=== PATIENT | female | born 1935 | race Caucasian/White ===

== ENCOUNTER 2017-07-03 22:40 | Observation (INO) ==
[2017-07-03] MEDS ORDERED: Ondansetron 4 MG/2 ML VIAL IVP ONE (22:47)
[2017-07-03] MEDS ORDERED: Nitroglycerin 1 INCH/GM PACKET TP ONE (22:47)
[2017-07-03] MEDS ORDERED: Aspirin 81 MG TAB.CHEW PO ONE (22:47)
[2017-07-03] MEDS ORDERED: *HR* LORazepam 2 MG/ML VIAL IVP ONE ×2 (22:48→23:21)
--- NOTE | 2017-07-03 22:49 | Emergency Department Note ---
Disposition Clinical Impression: Atypical chest pain Anemia Qualifiers: Anemia type: unspecified type Qualified Code(s): D64.9 - Anemia, unspecified Disposition: Admitted As Inpatient Condition: Fair Referrals: NONE,PCP [Primary Care Provider] - Forms: ED Satisfaction Letter Chest Pain HPI - General Chief Complaint: ED Chest Pain Stated Complaint: CHEST PAIN/BURNING Time Seen by Provider: 07/03/17 22:42 Source: patient, EMS Mode of arrival: EMS Limitations: no limitations Vital Signs Reviewed: Yes Nursing Notes Reviewed: Yes - History of Present Illness HPI Narrative: The patient relates that she has been having a burning epigastric and anterior chest pain "all day". Started this morning and seemed initially that it got a bit better when she is walking. She is also noted a dull persistent pain or chest and a feeling of an occasional irregular heartbeat. She has had some shortness of breath nausea without any diaphoresis. Chest pain in lower extremity swelling, immobilization injury or pain. She states she has some chronic pain in her legs from "poor circulation". She indicates that she has had a history of heart disease with a left anterior descending cardiac stent placed in about 2008 in [facility]. She states she currently follows up with Dr. Nav Mckinney through [facility] She indicates she has had had pain like this before and she has a evaluation here. She does not know the results of this evaluation states the pain just "went away". The patient is brought in by EMS without incident. I did transmit an EKG performed at 10:30 PM. This showed a heart rate of 95, axis of 23, [place] interval of 96 and the QT/QTC 346/407. There is some artifact present but no other acute ST or T-wave changes to suggest ischemia or infarction. This is on my interpretation. Pt complaint: chest pain Onset (ago): hour(s) (15) Duration: intermittent Pain Location: substernal, epigastric Severity: moderate Quality: dull, other (Burning) Pain Radiation: LUE Improves with: nothing Worsens with: nothing Associated symptoms: Reports: nausea, dyspnea. Denies: vomiting, diaphoresis, syncope, palpitations, fever, cough, leg swelling - Related Data Home Medications Medication Instructions Recorded Confirmed Atenolol [Tenormin] 12.5 mg PO DAILY PRN 10/24/15 07/03/17 Epoetin Cash [Procrit] 40,000 units IM QWEEK 10/24/15 07/03/17 Levothyroxine [Synthroid] 75 mcg PO DAILY 10/24/15 07/03/17 Aspirin 81 mg PO DAILY 05/15/16 07/03/17 Esomeprazole Magnesium [Nexium] 40 mg PO DAILY 12/23/16 07/03/17 Allergies Allergy/AdvReac Type Severity Reaction Status Date / Time cephalexin [From Keflex] AdvReac Nausea Verified 07/03/17 22:53 chlorpheniramine AdvReac Hypertensio Verified 07/03/17 22:53 [From Chlor-Trimeton] n nitrofurantoin AdvReac Hives Verified 07/03/17 22:53 [From Macrobid] All systems ED: reviewed and negative except as stated. Chest Pain PMH - Past Medical History Medical history: Reports: cancer ("Bone marrow cancer"), coronary artery disease , GERD, hypertension, thyroid disease, other (Recurrent Anemia with history of multiple transfusions) Surgical history: Reports: angioplasty/stent, cholecystectomy, hysterectomy, other (Bladder surgery) Psychiatric history: Reports: no psych history INDIAN NANNY history: Reports: no INDIAN NANNY history - Social History Smoking Status: Never smoker Alcohol use: Reports: none Drug use: Reports: none Physical Exam - General Limitations: no limitations General appearance: alert, anxious - Head Head exam: atraumatic, normocephalic, normal inspection - Eye Eye exam: Present: normal appearance, PERRL, EOMI - ENT ENT exam: normal exam, normal oropharynx, mucous membranes moist - Neck Neck exam: Present: normal inspection, full ROM, trachea midline - Chest Chest inspection: Present: normal inspection, symmetric chest wall rise, tenderness - Respiratory Respiratory exam: Present: normal lung sounds bilaterally. Absent: respiratory distress, wheezes, prolonged expiratory phase - Cardiovascular Cardiovascular exam: Present: regular rate, normal rhythm, normal heart sounds. Absent: tachycardia - Abdominal Exam Abdominal exam: Present: soft, Non-Tender, normal bowel sounds. Absent: tenderness, distention, guarding, rebound, rigidity - Extremities Exam Extremities exam: Present: normal inspection, full ROM, tenderness (Diffuse tenderness that is reported to be normal.), normal capillary refill. Absent: pedal edema - Expanded Lower Extremity Exam Neurovascular/Tendon exam: Present: normal capillary refill. Absent: motor deficit, sensory deficit, tendon deficit Gait: observed and normal - Back Exam Back exam: Present: normal inspection, full ROM. Absent: tenderness - Neurological Exam Neurological exam: Present: alert, oriented X3 - Psychiatric Psychiatric exam: Present: agitated, anxious - Skin Skin exam: Present: warm, dry, intact, normal color. Absent: cyanosis, diaphoresis, pallor Course Course Narrative: All testing has been discussed with the patient and her sister. I also contacted Dr. Reyes has given verbal orders for observation this patient on chest pain protocol with serial troponins. We are awaiting a bed placement at this time to transfer her to the inpatient floor. Vital Signs Temperature 98.4 F 07/03/17 22:43 Pulse Rate 85 07/03/17 22:43 Respiratory Rate 20 07/03/17 22:43 Blood Pressure 155/75 07/03/17 22:43 O2 Sat by Pulse Oximetry 100 07/03/17 22:43 Temperature 98.8 F 07/03/17 23:36 Pulse Rate 76 07/03/17 23:36 Respiratory Rate 20 07/03/17 23:36 Blood Pressure 112/79 07/03/17 23:36 O2 Sat by Pulse Oximetry 99 07/03/17 23:36 Oxygen Delivery Oxygen Delivery Room Air Chest Pain - Differential Diagnosis Likely: atypical chest pain, costalchondritis, chest pain - Medical Records Medical records reviewed: Yes I reviewed the patient's medical records. - Lab Data Lab results reviewed: Yes I reviewed the patient's lab results. Result diagrams: 07/03/17 22:57 07/03/17 22:57 Lab Results 07/03/17 07/03/17 07/03/17 Range/Units 22:57 22:57 22:57 WBC 2.2 L (4.3-11.1) K/mcL RBC 2.69 L (3.82-4.97) M/mcL Hgb 8.5 L (11.5-15.4) g/dL Hct 23.7 L (35.3-44.9) % MCV 88.1 (83.0-100.0) fL MCH 31.6 (28.0-33.3) pg MCHC 35.9 H (31.6-35.5) g/dL RDW 14.5 (11.5-14.5) % Plt Count 133 L (140-400) K/mcL MPV 11.1 (9.4-12.4) fL Immature Gran % 12.4 H (0-4) % Seg Neutrophils % 46.2 % Lymphocytes % 32.6 % Monocytes % 6.0 % Eosinophils % 0.5 % Basophils % 2.3 % Neutrophils # 1.0 L (1.6-8.9) K/mcL Lymphocytes # 0.7 (0.6-4.6) K/mcL Monocytes # 0.1 (0.0-1.3) K/mcL Eosinophils # 0.0 (0.0-0.6) K/mcL Basophils # 0.1 (0.0-0.2) K/mcL Platelet Estimate Normal (Normal) Anisocytosis 1+ A (Not Present) PT 12.0 (9.4-12.1) Seconds INR 1.1 APTT 30.8 (26.0-36.0) Seconds Sodium (136-145) mEq/L Potassium (3.5-4.5) mEq/L Chloride (98-109) mEq/L Carbon Dioxide (19-29) mEq/L BUN (7-20) mg/dL Creatinine (0.57-1.11) mg/dL Est GFR ( Amer) (> 60) Est GFR (Non-Af Amer) (> 60) BUN/Creatinine Ratio (6-26) Glucose (70-99) mg/dL Calculated Osmolality (280-300) Calcium (8.6-10.8) mg/dL Total Bilirubin 1.4 H (0.2-1.2) mg/dL Direct Bilirubin 0.5 (0.0-0.5) mg/dL Indirect Bilirubin 0.9 (0.0-1.2) mg/dL AST 21 (5-34) Units/L ALT 18 (0-55) Units/L Alkaline Phosphatase 88 (38-126) Units/L Troponin I (0-0.03) ng/mL Serum Total Protein 6.5 (6.0-8.3) g/dL Albumin 3.8 (3.5-5.0) g/dL Globulin 2.7 (2.4-3.5) g/dL Albumin/Globulin Ratio 1.4 (1.1-2.2) Amylase 57 (25-125) Units/L Lipase 28 (8-78) Units/L 07/03/17 07/03/17 Range/Units 22:57 22:57 WBC (4.3-11.1) K/mcL RBC (3.82-4.97) M/mcL Hgb (11.5-15.4) g/dL Hct (35.3-44.9) % MCV (83.0-100.0) fL MCH (28.0-33.3) pg MCHC (31.6-35.5) g/dL RDW (11.5-14.5) % Plt Count (140-400) K/mcL MPV (9.4-12.4) fL Immature Gran % (0-4) % Seg Neutrophils % % Lymphocytes % % Monocytes % % Eosinophils % % Basophils % % Neutrophils # (1.6-8.9) K/mcL Lymphocytes # (0.6-4.6) K/mcL Monocytes # (0.0-1.3) K/mcL Eosinophils # (0.0-0.6) K/mcL Basophils # (0.0-0.2) K/mcL Platelet Estimate (Normal) Anisocytosis (Not Present) PT (9.4-12.1) Seconds INR APTT (26.0-36.0) Seconds Sodium 132 L (136-145) mEq/L Potassium 3.8 (3.5-4.5) mEq/L Chloride 96 L (98-109) mEq/L Carbon Dioxide 21 (19-29) mEq/L BUN 22 H (7-20) mg/dL Creatinine 1.03 (0.57-1.11) mg/dL Est GFR ( Amer) > 60 (> 60) Est GFR (Non-Af Amer) 51 L (> 60) BUN/Creatinine Ratio 21 (6-26) Glucose 118 H (70-99) mg/dL Calculated Osmolality 278 L (280-300) Calcium 9.6 (8.6-10.8) mg/dL Total Bilirubin (0.2-1.2) mg/dL Direct Bilirubin (0.0-0.5) mg/dL Indirect Bilirubin (0.0-1.2) mg/dL AST (5-34) Units/L ALT (0-55) Units/L Alkaline Phosphatase (38-126) Units/L Troponin I 0.01 (0-0.03) ng/mL Serum Total Protein (6.0-8.3) g/dL Albumin (3.5-5.0) g/dL Globulin (2.4-3.5) g/dL Albumin/Globulin Ratio (1.1-2.2) Amylase (25-125) Units/L Lipase (8-78) Units/L - Radiology Data Radiology results reviewed: Yes I reviewed the patient's radiology results. Single view chest x-ray is performed. This does not demonstrate evidence for infiltrate, effusion, pneumothorax, foreign body or heart failure. The cardiac silhouette is normal. I do not see abnormality to the osseous structures of the chest. This is on my interpretation. Impressions Chest X-Ray 07/03/17 22:47 IMPRESSION: Stable portable study. D/ / Mirlande Roth Cha, MD / Mirlande Roth Cha, MD Interpreting Provider: Mirlande Roth Cha, MD - EKG Data EKG attestation: Yes I reviewed and interpreted this EKG. EKG shows normal: sinus rhythm, axis, intervals, QRS complexes, ST-T waves Rate: normal (93) Voltage: c/w LVH Interpretation: no acute changes, nonspecific ST-T wave changes Heart Score - Score History: Slightly Suspicious EKG: Non Specific repolarisation Disturbance Age: Greater than 65 Risk Factors: Equal/Greater than 3 risk factor or history of atherosclerotic disease Troponin: Less than normal limit HEART Score Total: 5
[2017-07-03 23:04] LABS: Basophils # 0.1 K/mcL (0.0-0.2); Basophils % 2.3 %; Eosinophils % 0.5 %; Hematocrit 23.7 % (35.3-44.9); Hemoglobin 8.5 g/dL (11.5-15.4); Immature Granulocytes % 12.4 % (0-4); Lymphocytes # 0.7 K/mcL (0.6-4.6); Lymphocytes % 32.6 %; Mean Corpuscular HGB Conc 35.9 g/dL (31.6-35.5); Mean Corpuscular Hemoglobin 31.6 pg (28.0-33.3); Mean Corpuscular Volume 88.1 fL (83.0-100.0); Mean Platelet Volume 11.1 fL (9.4-12.4); Monocytes # 0.1 K/mcL (0.0-1.3); Platelet Count 133 K/mcL (140-400); Red Blood Count 2.69 M/mcL (3.82-4.97); Red Cell Distribution Width 14.5 % (11.5-14.5); Segmented Neutrophils % 46.2 %
[2017-07-03 23:10] LABS: INR 1.1
[2017-07-03 23:12] LABS: Activated Partial Thrombo Time 30.8 Seconds (26.0-36.0)
[2017-07-03 23:20] LABS: BUN/Creatinine Ratio 21 (6-26); Blood Urea Nitrogen 22 mg/dL (7-20); Calcium 9.6 mg/dL (8.6-10.8); Carbon Dioxide 21 mEq/L (19-29); Chloride 96 mEq/L (98-109); Glucose 118 mg/dL (70-99); Osmolality,Calculated 278 (280-300); Potassium 3.8 mEq/L (3.5-4.5); Sodium 132 mEq/L (136-145); eGFR For African Americans > 60 (> 60); eGFR For Non-African Americans 51 (> 60)
[2017-07-03 23:23] LABS: Albumin 3.8 g/dL (3.5-5.0); Albumin/Globulin Ratio 1.4 (1.1-2.2); Bilirubin,Direct 0.5 mg/dL (0.0-0.5); Bilirubin,Indirect 0.9 mg/dL (0.0-1.2); Bilirubin,Total 1.4 mg/dL (0.2-1.2); Globulin 2.7 g/dL (2.4-3.5); Total Protein 6.5 g/dL (6.0-8.3)
[2017-07-03 23:32] LABS: Anisocytosis 1+ (Not Present); Platelet Estimate Normal (Normal)
[2017-07-04] MEDS ORDERED: Naloxone 0.4 MG/ML INJ IVP PRN (00:11)
[2017-07-04] MEDS ORDERED: Ondansetron 4 MG/2 ML VIAL IVP PRN (00:11)
[2017-07-04] MEDS ORDERED: Acetaminophen 325 MG TABLET PO PRN (00:11)
[2017-07-04] MEDS ORDERED: MOM Conc 10 ML UD.LIQ PO PRN (00:11)
[2017-07-04] MEDS ORDERED: Nitroglycerin 1 INCH/GM PACKET TP SCH (06:00)
[2017-07-04] MEDS ORDERED: Aspirin 81 MG TAB.CHEW PO SCH (09:00)
[2017-07-04 11:30] VITALS: BP 108/61
--- NOTE | 2017-07-04 12:29 | Internal Med History&Physical ---
Date of Encounter: 07/04/17 Time of Encounter: 11:45 Assessment and Plan (1) Atypical chest pain Current visit: Yes Status: Acute Repeat cardiac enzymes were ordered through emergency room. Further workup done as needed. (2) MDS (myelodysplastic syndrome) Current visit: Yes Status: Chronic As per oncologist (3) CKD (chronic kidney disease) Current visit: Yes Status: Acute Renal indices are being monitored by her PCP and oncologist. Qualifiers: Chronic kidney disease stage: stage 3 (moderate) Qualified Code(s): N18.3 - Chronic kidney disease, stage 3 (moderate) Internal Medicine - H&P: HPI Chief complaint: Chest discomfort Admitted From: Home Plans for Post Hospital Care: Home History of present illness: Ms. Raza is a 82 year old female who came to emergency room dating she had noticed chest discomfort present when she awakened approximately 0600. Her blood pressure was elevated with systolic of approximately 190. She took a dose of Tenormin 12.5 mg. She felt some nonspecific discomfort in her chest and felt her heart was "skipping". She also felt slightly confused. When she did not improve over the next few hours she decided to come to the emergency room. She was evaluated and admitted to [facility] for ongoing care needs. She states she feels back to her baseline now. Her cardiovascular history is significant for hypertension but she denies FL heart failure angina DVT or pulmonary embolus. She claims she had a cardiac stent placed approximately 2008. She does get dyspneic on exertion but has anemia from MDS. Past Med Surg Social Fam HX - Past Medical History Medical history: cancer, coronary artery disease, GERD, hypertension, thyroid disease, other Psychiatric history: no psych history - Past Surgical History Surgical History: angioplasty/stent, cholecystectomy, hysterectomy, other - Social History Smoking Status: Never smoker Smokeless Tobacco Status: No Alcohol use: none Drug use: none Internal Medicine - H&P: Meds Atenolol [Tenormin] 12.5 mg PO DAILY PRN 10/24/15 [History] Epoetin Cash [Procrit] 40,000 units IM QWEEK 10/24/15 [History] Levothyroxine [Synthroid] 75 mcg PO DAILY 10/24/15 [History] Aspirin 81 mg PO DAILY 05/15/16 [History] Esomeprazole Magnesium [Nexium] 40 mg PO DAILY 12/23/16 [History] Allergies cephalexin [From Keflex] Adverse Reaction (Verified 07/03/17 22:53) Nausea chlorpheniramine [From Chlor-Trimeton] Adverse Reaction (Verified 07/03/17 22:53 ) Hypertension nitrofurantoin [From Macrobid] Adverse Reaction (Verified 07/03/17 22:53) Hives All Systems PM: A 10-system review of systems was performed and is negative for pertinent findings except as documented above in the HPI. Review of systems: Gen.: Her weight has changed minimally from 64.818 kg on 05/15/2016 to 61.235 kg on admission now. Cardiovascular: As per history of present illness Respiratory: She is a lifelong nonsmoker and has no known chronic lung disease. GI: She has had cholecystectomy. She has had elevated liver function tests in the past. She denies disorder of her exocrine pancreas. : She is been told in the past she has CKD Neurologic: She denies large distribution strokes or seizures. She was diagnosed with TIA approximately 6 weeks ago at [facility]. She states she was not regularly taking aspirin prior to the event but has been using enteric-coated aspirin 81 mg daily since then and has had no recurrence. 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 She denies other internal malignancies or blood disorders. Psychiatric: She has feelings of stress and depression at times but does not take medication Musk skeletal: She has DJD no known gout or osteoporosis. - Constitutional Vitals: Temp Pulse Resp BP Pulse Ox 98.5 F 75 16 108/61 97 07/04/17 11:00 07/04/17 11:00 07/04/17 11:00 07/04/17 11:07/04/17 11:00 Exam: Gen.: She is a well-developed well-nourished female lying in bed who appears in no acute distress at present time HEENT: Head is atraumatic and normocephalic. Eyes: EOMI. There is no scleral icterus. Mouth: Mucosa is moist. Neck: Supple and nontender. There is no thyromegaly or adenopathy noted. Heart: Regular without murmurs gallops or ectopics Lungs: No wheezes or crackles are heard. Abdomen: Soft and nontender. No masses or guarding noted. Extremities: There is no cyanosis edema or clubbing noted. Dorsalis pedis and posterior tibial pulses are 1-2 over 2 bilaterally. Neurologic: Mental status: She is talkative and a good historian. Cranial nerves: Smile is symmetric. Forehead wrinkles bilaterally. Tongue protrudes midline. EOMI. Motor: There is no pronator drift. Cerebellar: Finger to nose is intact bilaterally. Skin: Warm and dry Internal Med - H&P Results - Labs CBC & Chem 7: 07/03/17 22:57 07/03/17 22:57 Labs: Cardiac Enzymes 07/04/17 07/04/17 Range/Units 05:05 11:08 Troponin I 0.00 0.02 (0-0.03) ng/mL - VTE Documentation of Mechanical Device: Graduated compression elastic hosiery
--- NOTE | 2017-07-04 12:38 | Discharge Summary ---
Date of Encounter: 07/04/17 Time of Encounter: 11:45 - Discharge Diagnosis (1) Atypical chest pain Priority: Primary Status: Resolved (2) MDS (myelodysplastic syndrome) Priority: Secondary Status: Chronic (3) CKD (chronic kidney disease) Priority: Secondary Status: Chronic Qualifiers: Chronic kidney disease stage: stage 3 (moderate) Qualified Code(s): N18.3 - Chronic kidney disease, stage 3 (moderate) - Discharge Medications Home Medications: Atenolol [Tenormin] 12.5 mg PO DAILY PRN 10/24/15 [History] Epoetin Cash [Procrit] 40,000 units IM QWEEK 10/24/15 [History] Levothyroxine [Synthroid] 75 mcg PO DAILY 10/24/15 [History] Aspirin 81 mg PO DAILY 05/15/16 [History] Esomeprazole Magnesium [Nexium] 40 mg PO DAILY 12/23/16 [History] Allergies/Adverse Reactions: Allergies cephalexin [From Keflex] Adverse Reaction (Verified 07/03/17 22:53) Nausea chlorpheniramine [From Chlor-Trimeton] Adverse Reaction (Verified 07/03/17 22:53 ) Hypertension nitrofurantoin [From Macrobid] Adverse Reaction (Verified 07/03/17 22:53) Hives Date of admission: 07/04/17 00:00 Primary care physician: Nav Mckinney M.D. - Patient Status Disposition: Home, Self-Care Condition: Fair Functional capacity at discharge: independent ambulation Overall status at discharge: patient is progressing back to baseline - Discharge Instructions Follow Up With: Nav Mckinney [Non-Partnered Physician] - 1 week - Diet and Activity Activity: resume usual activities as tolerated Diet: advance to your usual diet Hospital course: Ms. Raza is a 82 year old female who came to emergency room dating she had noticed chest discomfort present when she awakened approximately 0600. Her blood pressure was elevated with systolic of approximately 190. She took a dose of Tenormin 12.5 mg. She felt some nonspecific discomfort in her chest and felt her heart was "skipping". She also felt slightly confused. When she did not improve over the next few hours she decided to come to the emergency room. She was evaluated and admitted to [facility] for ongoing care needs. Initial orders were written by the emergency room physician. I saw her on July 04 and performed a history physical and discharge. Repeat cardiac enzymes showed no evidence of myocardial damage. When I saw her she was pain free and had no recurrence of discomfort after admission. She felt stable for discharge home which I felt was reasonable. She will follow with her PCP within one week. - Time Spent with Patient Total time spent providing and/or coordinating discharge services: - Constitutional Vitals: Temp Pulse Resp BP Pulse Ox 98.5 F 75 16 108/61 97 07/04/17 11:07/04/17 11:07/04/17 11:00 07/04/17 11:07/04/17 11:00 - VTE Documentation of Mechanical Device: Graduated compression elastic hosiery
--- NOTE | 2017-07-04 15:19 | Electrocardiograph Report ---
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
== END 2017-07-04 13:37 | disposition home or self-care (01) ==
LOC: INPPIK 22:40 → EMEROOPIK 22:40 → INPPIK 07-04 00:07
PROVIDERS: ADMIT Internal Medicine; ATTEND Internal Medicine

== ENCOUNTER 2018-07-18 23:10 | Observation (INO) ==
[2018-07-18] MEDS ORDERED: Nitroglycerin 1 INCH/GM PACKET TP ONE (23:20)
--- NOTE | 2018-07-18 23:36 | Emergency Department Note ---
Disposition Clinical Impression: Atypical chest pain, Hyponatremia, History of hypertension, Near syncope, Chronic anemia Disposition: Admitted As Inpatient Condition: Good Forms: ED Satisfaction Letter Time of Disposition: 00:23 Chest Pain HPI - General Chief Complaint: ED Chest Pain Stated Complaint: mid sturnal chest pain Time Seen by Provider: 07/18/18 23:19 Source: patient, EMS Mode of arrival: EMS Limitations: no limitations Vital Signs Reviewed: Yes Nursing Notes Reviewed: Yes - History of Present Illness HPI Narrative: Patient relates that she is been feeling poorly "all day". She states she felt "a little confused" and that her head was "fuzzy". She denied headache or head injury. She denied dizziness but states at one point she felt like she could pass out. She did not fall or have any type of syncope or seizure. She ultimately began to think that her blood pressure could be up and she checked it this evening and had a systolic of around 200. She denies any change in blood pressure medicines or taking any additional medicines. She developed a mid sternal chest pressure and tightness prompting her ultimately to call the squad. This started not long before coming to the emergency department. She states with this she developed some pain in the left arm. She did have some shortness of breath as well as some nausea. She denied diaphoresis. She has not had other numbness, tingling or weakness. She denies cough, fevers or chills. She denies any change in medicines other than she has finished a Z-Gui for an ear infection and is on some Flonase and Mucinex. She denies abdominal pain nor any bloody or black stool. She has diarrhea but states she occasionally gets constipation. She denies any urinary troubles. She denies any lower extremity swelling, immobilization or injury. She did receive nitroglycerin by the EMS and her pain is decreased to a 4 on a scale of 1-10. She arrives here quite anxious and tremulous. EMS did transmit 2 EKGs that were performed at 10:48 and 10:51 PM. These both had significant baseline artifact but otherwise showed normal sinus rhythm with a rate in the mid 90s, axis of about 50, TN interval 140 and QTQTC's of about 340 and 400. There are no acute ST or T-wave changes to suggest ischemia or infarction. This is on my interpretation. 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 Denies: vomiting, diaphoresis, syncope, palpitations, fever, cough, leg swelling Treatments prior to arrival chest pain: aspirin, nitroglycerin, oxygen - Related Data Home Medications Medication Instructions Recorded Confirmed Atenolol [Tenormin] 12.5 mg PO DAILY PRN 10/24/15 07/03/17 Epoetin Cash [Procrit] 40,000 units IM QWEEK 10/24/15 07/03/17 Levothyroxine [Synthroid] 75 mcg PO DAILY 10/24/15 07/03/17 Aspirin 81 mg PO DAILY 05/15/16 07/03/17 Esomeprazole Magnesium [Nexium] 40 mg PO DAILY 12/23/16 07/03/17 Allergies Allergy/AdvReac Type Severity Reaction Status Date / Time cephalexin [From Keflex] AdvReac Nausea Verified 07/18/18 23:12 chlorpheniramine AdvReac Hypertensio Verified 07/18/18 23:12 [From Chlor-Trimeton] n nitrofurantoin AdvReac Hives Verified 07/18/18 23:12 [From Macrobid] All systems ED: reviewed and negative except as stated. Chest Pain PMH - Past Medical History Medical history: Reports: cancer, coronary artery disease, GERD, hypertension, thyroid disease, other Surgical history: Reports: angioplasty/stent, cholecystectomy, hysterectomy, other Psychiatric history: Reports: no psych history DIRECTOR OF ENGINEERING history: Reports: no DIRECTOR OF ENGINEERING history - Social History Smoking Status: Never smoker Alcohol use: Reports: none Drug use: Reports: none Physical Exam - General Limitations: no limitations General appearance: alert, in no apparent distress, anxious - Head Head exam: atraumatic, normocephalic, normal inspection - Eye Eye exam: Present: normal appearance, PERRL, EOMI. Absent: scleral icterus, conjunctival injection - ENT ENT exam: normal exam, normal oropharynx, mucous membranes moist - Neck Neck exam: Present: normal inspection, full ROM, trachea midline - Chest Chest inspection: Present: normal inspection, symmetric chest wall rise - Respiratory Respiratory exam: Present: normal lung sounds bilaterally. Absent: respiratory distress, wheezes, prolonged expiratory phase - Cardiovascular Cardiovascular exam: Present: regular rate, normal rhythm, normal heart sounds. Absent: tachycardia, JVD - Abdominal Exam Abdominal exam: Present: soft, Non-Tender, normal bowel sounds. Absent: tenderness, distention, guarding, rebound, rigidity - Extremities Exam Extremities exam: Present: normal inspection, full ROM, normal capillary refill. Absent: tenderness, pedal edema, calf tenderness - Expanded Lower Extremity Exam Neurovascular/Tendon exam: Present: normal capillary refill. Absent: motor deficit, sensory deficit, tendon deficit Gait: not tested/not observed - Back Exam Back exam: Present: normal inspection, full ROM. Absent: tenderness, vertebral tenderness - Neurological Exam Neurological exam: Present: alert, oriented X3, CN II-XII intact - Psychiatric Psychiatric exam: Present: agitated, anxious - Skin Skin exam: Present: warm, dry, intact, pallor. Absent: rash, cyanosis, diaphoresis Course Course Narrative: 0015: All testing has been discussed with the patient. She was concerned about her platelet count that was now it for her at 104. Her hemoglobin is 8.5 but this again is little better than she is been recently. Her chemistries and renal function are unimpaired. Her troponin is negative. Her chest x-ray is clear. She still is having some discomfort more in her back without any ongoing anterior chest pain, dyspnea, nausea or diaphoresis. He is no longer having pain in the left arm. She still feels somewhat fuzzy and her thought. I have recommended that she be brought in for observation and serial troponins. A page has been placed to Dr. Reyes for this purpose. 0025: Care has been discussed with Dr. Reyes and verbal orders have been obtained for her observation period Vital Signs Temperature 98.1 F 07/18/18 23:11 Pulse Rate 80 07/18/18 23:11 Respiratory Rate 12 07/18/18 23:11 Blood Pressure 127/72 07/18/18 23:11 O2 Sat by Pulse Oximetry 100 07/18/18 23:11 Temperature 98.1 F 07/18/18 23:11 Pulse Rate 80 07/18/18 23:11 Respiratory Rate 12 07/18/18 23:11 Blood Pressure 127/72 07/18/18 23:11 O2 Sat by Pulse Oximetry 100 07/18/18 23:11 Oxygen Delivery Oxygen Delivery Room Air Chest Pain - Lab Data Lab results reviewed: Yes I reviewed the patient's lab results. Result diagrams: 07/18/18 23:25 07/18/18 23:25 Lab Results 07/18/18 07/18/18 07/18/18 Range/Units 23:25 23:25 23:25 WBC 3.5 L (4.3-11.1) K/mcL RBC 2.83 L (3.82-4.97) M/mcL Hgb 8.5 L (11.5-15.4) g/dL Hct 25.8 L (35.3-44.9) % MCV 91.2 (83.0-100.0) fL MCH 30.0 (28.0-33.3) pg MCHC 32.9 (31.6-35.5) g/dL RDW 12.0 (11.5-14.5) % Plt Count 104 L (140-400) K/mcL MPV 11.1 (9.4-12.4) fL Immature Gran % 5.1 H (0-4) % Seg Neutrophils % 72.8 % Lymphocytes % 18.3 % Monocytes % 2.3 % Eosinophils % 0.6 % Basophils % 0.9 % Neutrophils # 2.6 (1.6-8.9) K/mcL Lymphocytes # 0.6 (0.6-4.6) K/mcL Monocytes # 0.1 (0.0-1.3) K/mcL Eosinophils # 0.0 (0.0-0.6) K/mcL Basophils # 0.0 (0.0-0.2) K/mcL Platelet Estimate Decreased L (Normal) Anisocytosis 1+ A (Not Present) PT 12.5 H (9.4-12.1) Seconds INR 1.1 APTT 34.8 (26.0-36.0) Seconds Sodium (136-145) mEq/L Potassium (3.5-5.1) mEq/L Chloride (98-107) mEq/L Carbon Dioxide (23-29) mEq/L BUN (8-23) mg/dL Creatinine (0.60-1.20) mg/dL Est GFR ( Amer) (> 60) Est GFR (Non-Af Amer) (> 60) BUN/Creatinine Ratio (6-26) Glucose (70-105) mg/dL Calculated Osmolality (280-300) Calcium (8.6-10.3) mg/dL Troponin I (< 0.04) ng/mL B-Natriuretic Peptide 66 (Less than 100) pg/mL 07/18/18 Range/Units 23:25 WBC (4.3-11.1) K/mcL RBC (3.82-4.97) M/mcL Hgb (11.5-15.4) g/dL Hct (35.3-44.9) % MCV (83.0-100.0) fL MCH (28.0-33.3) pg MCHC (31.6-35.5) g/dL RDW (11.5-14.5) % Plt Count (140-400) K/mcL MPV (9.4-12.4) fL Immature Gran % (0-4) % Seg Neutrophils % % Lymphocytes % % Monocytes % % Eosinophils % % Basophils % % Neutrophils # (1.6-8.9) K/mcL Lymphocytes # (0.6-4.6) K/mcL Monocytes # (0.0-1.3) K/mcL Eosinophils # (0.0-0.6) K/mcL Basophils # (0.0-0.2) K/mcL Platelet Estimate (Normal) Anisocytosis (Not Present) PT (9.4-12.1) Seconds INR APTT (26.0-36.0) Seconds Sodium 128 L (136-145) mEq/L Potassium 4.0 (3.5-5.1) mEq/L Chloride 93 L (98-107) mEq/L Carbon Dioxide 27 (23-29) mEq/L BUN 25 H (8-23) mg/dL Creatinine 0.87 (0.60-1.20) mg/dL Est GFR ( Amer) > 60 (> 60) Est GFR (Non-Af Amer) > 60 (> 60) BUN/Creatinine Ratio 29 H (6-26) Glucose 125 H (70-105) mg/dL Calculated Osmolality 272 L (280-300) Calcium 9.3 (8.6-10.3) mg/dL Troponin I < 0.03 (< 0.04) ng/mL B-Natriuretic Peptide (Less than 100) pg/mL - Radiology Data Radiology results reviewed: Yes I reviewed the patient's radiology results. Single view chest x-ray is performed. This does not demonstrate evidence for infiltrate, effusion, pneumothorax, foreign body or heart failure. The cardiac silhouette is normal. Patient has a port in the left upper chest that appears to be intact. I do not see abnormality to the osseous structures of the chest. This is on my interpretation. - EKG Data EKG attestation: Yes I reviewed and interpreted this EKG. EKG shows normal: sinus rhythm, axis, intervals, QRS complexes, ST-T waves Rate: normal (82) Interpretation: no acute changes, normal EKG Heart Score - Score History: Moderately Suspicious EKG: Normal Age: Greater than 65 Risk Factors: Equal/Greater than 3 risk factor or history of atherosclerotic disease Troponin: Less than normal limit HEART Score Total: 5
[2018-07-18 23:38] LABS: Basophils % 0.9 %; Eosinophils % 0.6 %; Hematocrit 25.8 % (35.3-44.9); Hemoglobin 8.5 g/dL (11.5-15.4); Immature Granulocytes % 5.1 % (0-4); Lymphocytes # 0.6 K/mcL (0.6-4.6); Lymphocytes % 18.3 %; Mean Corpuscular HGB Conc 32.9 g/dL (31.6-35.5); Mean Corpuscular Volume 91.2 fL (83.0-100.0); Mean Platelet Volume 11.1 fL (9.4-12.4); Monocytes # 0.1 K/mcL (0.0-1.3); Monocytes % 2.3 %; Neutrophils # 2.6 K/mcL (1.6-8.9); Platelet Count 104 K/mcL (140-400); Red Blood Count 2.83 M/mcL (3.82-4.97); Segmented Neutrophils % 72.8 %
[2018-07-18 23:47] LABS: INR 1.1; Prothrombin Time 12.5 Seconds (9.4-12.1)
[2018-07-18 23:49] LABS: Activated Partial Thrombo Time 34.8 Seconds (26.0-36.0)
[2018-07-18 23:57] LABS: BUN/Creatinine Ratio 29 (6-26); Blood Urea Nitrogen 25 mg/dL (8-23); Calcium 9.3 mg/dL (8.6-10.3); Carbon Dioxide 27 mEq/L (23-29); Chloride 93 mEq/L (98-107); Glucose 125 mg/dL (70-105); Osmolality,Calculated 272 (280-300); Sodium 128 mEq/L (136-145); eGFR For Non-African Americans > 60 (> 60)
[2018-07-19 00:02] LABS: Anisocytosis 1+ (Not Present); Platelet Estimate Decreased (Normal)
[2018-07-19 00:03] LABS: Troponin I < 0.03 ng/mL (< 0.04)
[2018-07-19] MEDS ORDERED: 0.9 % Sodium Chloride 1,000 ML IVC SCH (00:30)
[2018-07-19] MEDS ORDERED: Naloxone 0.4 MG/ML INJ IVP PRN (01:07)
[2018-07-19] MEDS: 0.9 % Sodium Chloride 1,000 ML IVC SCH ×2 (01:19→09:26)
[2018-07-19] MEDS: Nitroglycerin 1 INCH/GM PACKET TP SCH ×2 (05:39→10:58)
[2018-07-19 10:13] LABS: BUN/Creatinine Ratio 25 (6-26); Blood Urea Nitrogen 21 mg/dL (8-23); Calcium 8.6 mg/dL (8.6-10.3); Carbon Dioxide 27 mEq/L (23-29); Chloride 100 mEq/L (98-107); Glucose 117 mg/dL (70-105); Osmolality,Calculated 280 (280-300); Potassium 3.7 mEq/L (3.5-5.1); Sodium 133 mEq/L (136-145); eGFR For Non-African Americans > 60 (> 60)
[2018-07-19] MEDS ORDERED: JADENU 360 MG PO SCH (11:00)
[2018-07-19 11:30] VITALS: BP 125/64
[2018-07-19] MEDS ORDERED: Acetaminophen 325 MG TABLET PO PRN (13:12)
--- NOTE | 2018-07-19 14:30 | Internal Med History&Physical ---
Date of Encounter: 07/19/18 Time of Encounter: 13:45 Assessment and Plan (1) Chest pain Current visit: Yes Status: Acute Now resolved. Repeat cardiac enzymes were ordered through emergency room. Qualifiers: Chest pain type: unspecified Qualified Code(s): R07.9 - Chest pain, unspecified (2) MDS (myelodysplastic syndrome) Current visit: No Status: Chronic As per oncologist (3) Pancytopenia Current visit: Yes Status: Acute As per oncologist. (4) Hypothyroidism Current visit: Yes Status: Chronic TSH was elevated at 9.112 on 04/06/2016. Her PCP can follow-up on this if it has not already been done. Qualifiers: Hypothyroidism type: unspecified Qualified Code(s): E03.9 - Hypothyroidism , unspecified (5) CKD (chronic kidney disease) Current visit: No Status: Chronic Creatinine 0.87 with estimated GFR greater than 60. Qualifiers: Chronic kidney disease stage: stage 3 (moderate) Qualified Code(s): N18.3 - Chronic kidney disease, stage 3 (moderate) (6) Hyponatremia Current visit: Yes Status: Acute Present on nearly all labs since 2013. She reports etiology has not been determined. Internal Medicine - H&P: HPI Chief complaint: Arm weakness, chest discomfort Plans for Post Hospital Care: Home History of present illness: Ms. Raza is a 83 year old female who came to emergency room stating she had onset of feeling "off mentally" and overall weakness the evening of July 17. Her symptoms seem to be worse the following day. She developed some discomfort in her chest that she describes as tightness. She states discomfort radiated to her left elbow. She came to emergency room and was evaluated and admitted to [facility] floor for ongoing care needs. She states she has had similar symptoms when she has had low hemoglobin and low sodium in the past. Her cardiovascular history is significant for hypertension but she denies [place] heart failure angina DVT or pulmonary embolus. She claims she had a cardiac stent placed approximately 2008. She has had dyspnea on exertion in the past but has anemia from MDS. Past Med Surg Social Fam HX - Past Medical History Medical history: cancer, coronary artery disease, GERD, hypertension, thyroid disease, other Additional medical history: bone marrow ca. anemia Psychiatric history: no psych history - Past Surgical History Surgical History: angioplasty/stent, cholecystectomy, hysterectomy, other Additional surgical history: CARDIAC STENT X1 LAD. REPAIR BLADDER PROLAPSE - Social History Smoking Status: Never smoker Smokeless Tobacco Status: No Alcohol use: none Drug use: none Internal Medicine - H&P: Meds Epoetin Cash [Procrit] 40,000 units IM QWEEK 10/24/15 [History] Levothyroxine [Synthroid] 75 mcg PO DAILY 10/24/15 [History] Esomeprazole Magnesium [Nexium] 40 mg PO DAILY 12/23/16 [History] Cholecalciferol (Vitamin D3) [Vitamin D3] 3,000 unit PO 07/19/18 [History] Deferasirox [Jadenu] 360 mg PO DAILY 07/19/18 [History] 3 Allergy/AdvReac Type Severity Reaction Status Date / Time cephalexin [From Keflex] AdvReac Nausea Verified 07/18/18 23:12 chlorpheniramine AdvReac Hypertensio Verified 07/18/18 23:12 [From Chlor-Trimeton] n nitrofurantoin AdvReac Hives Verified 07/18/18 23:12 [From Macrobid] All Systems PM: A 10-system review of systems was performed and is negative for pertinent findings except as documented above in the HPI. Review of systems: Review of systems from her June 2017 [facility] hospitalization were reviewed and revised as below. Gen.: Her weight has decreased from 64.41 kg on 07/04/2017 to 60.328 kg on admission now. Cardiovascular: As per history of present illness Respiratory: She is a lifelong nonsmoker and has no known chronic lung disease. GI: She has had cholecystectomy. She has had elevated liver function tests in the past. She denies disorder of her exocrine pancreas. : She is been told in the past she has CKD Neurologic: She denies large distribution strokes or seizures. She was diagnosed with TIA approximately 2012 at [facility]. She has had no recurrence. 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 She has pancytopenia and follows with a [place] reclamation worker/oncologist. She denies other internal malignancies or blood disorders. Psychiatric: She denies anxiety depression or other mental health issues. [place] skeletal: She has DJD but no known gout or osteoporosis. - Constitutional Vitals: Temp Pulse Resp BP Pulse Ox 97.9 F 73 16 125/64 96 07/19/18 11:29 07/19/18 11:29 07/19/18 11:29 07/19/18 11:29 07/19/18 11:29 Exam: Gen.: She is a well-developed well-nourished female resting comfortably in bed who appears in no acute distress at present time. HEENT: Head is atraumatic and normocephalic. Eyes: EOMI. There is no scleral icterus. Mouth: Mucosa is moist. Neck: Supple and nontender. There is no thyromegaly or adenopathy noted. Heart: Regular without murmurs gallops or ectopics Lungs: No wheezes or crackles are heard. Abdomen: Soft and nontender. No masses or guarding are noted. Extremities: There is no cyanosis edema or clubbing noted. Dorsalis pedis and posterior tibial pulses are trace palpable bilaterally. Neurologic: Mental status: She is talkative and a good historian. Cranial nerves: Smile is symmetric. Forehead wrinkles bilaterally. Tongue protrudes midline. EOMI. Motor: There is no pronator drift. Cerebellar: Finger to nose is intact bilaterally. Skin: Warm and dry Internal Med - H&P Results - Labs CBC & Chem 7: 07/18/18 23:25 07/19/18 09:27 Labs: BMP 07/19/18 09:27 Sodium 133 L Potassium 3.7 Chloride 100 Carbon Dioxide 27 BUN 21 Creatinine 0.85 Glucose 117 H Calcium 8.6 Cardiac Enzymes 07/19/18 Range/Units 09:27 Troponin I < 0.03 (< 0.04) ng/mL
--- NOTE | 2018-07-19 14:45 | Discharge Summary ---
Date of Encounter: 07/19/18 Time of Encounter: 13:45 - Discharge Diagnosis (1) Chest pain Priority: Primary Status: Resolved Qualifiers: Chest pain type: unspecified Qualified Code(s): R07.9 - Chest pain, unspecified (2) MDS (myelodysplastic syndrome) Priority: Secondary Status: Chronic (3) Pancytopenia Priority: Secondary Status: Chronic (4) Hypothyroidism Priority: Secondary Status: Chronic Qualifiers: Hypothyroidism type: unspecified Qualified Code(s): E03.9 - Hypothyroidism , unspecified (5) CKD (chronic kidney disease) Priority: Secondary Status: Chronic Qualifiers: Chronic kidney disease stage: stage 3 (moderate) Qualified Code(s): N18.3 - Chronic kidney disease, stage 3 (moderate) (6) Hyponatremia Priority: Secondary Status: Chronic Hospital course: Ms. Raza is a 83 year old female who came to emergency room stating she had onset of feeling "off mentally" and overall weakness the evening of July 17. Her symptoms seem to be worse the following day. She developed some discomfort in her chest that she describes as tightness. She states discomfort radiated to her left elbow. She came to emergency room and was evaluated and admitted to [facility] for ongoing care needs. Initial orders were written by the emergency room physician. I saw her on July 19 and performed the history and physical. By the time I saw her she stated her chest pain had resolved and she felt improved and stable for discharge home. Repeat cardiac enzymes showed no evidence of myocardial damage. Etiology of the pain was not determined with certainty. Her PCP can order further cardiac workup as needed. Repeat labs showed sodium improved to 133. There were no new problems and on the afternoon of July 19 she felt stable for discharge home. She will follow with her PCP within 1 week. She will follow with her oncologist as scheduled. - Time Spent with Patient Total time spent providing and/or coordinating discharge services: - Discharge Medications Home Medications: Epoetin Cash [Procrit] 40,000 units IM QWEEK 10/24/15 [History] Levothyroxine [Synthroid] 75 mcg PO DAILY 10/24/15 [History] Esomeprazole Magnesium [Nexium] 40 mg PO DAILY 12/23/16 [History] Cholecalciferol (Vitamin D3) [Vitamin D3] 3,000 unit PO 07/19/18 [History] Deferasirox [Jadenu] 360 mg PO DAILY 07/19/18 [History] Allergies/Adverse Reactions: 3 Allergy/AdvReac Type Severity Reaction Status Date / Time cephalexin [From Keflex] AdvReac Nausea Verified 07/18/18 23:12 chlorpheniramine AdvReac Hypertensio Verified 07/18/18 23:12 [From Chlor-Trimeton] n nitrofurantoin AdvReac Hives Verified 07/18/18 23:12 [From Macrobid] Date of admission: 07/19/18 00:39 Primary care physician: Nav Mckinney - Constitutional Vitals: Temp Pulse Resp BP Pulse Ox 97.9 F 73 16 125/64 96 07/19/18 11:29 07/19/18 11:29 07/19/18 11:29 07/19/18 11:29 07/19/18 11:29 - Patient Status Disposition: Home, Self-Care Condition: Good Functional capacity at discharge: independent ambulation - Discharge Instructions Follow Up With: Nav Mckinney [Primary Care Provider] - 1 week - Diet and Activity Activity: resume usual activities as tolerated Diet: advance to your usual diet
--- NOTE | 2018-07-22 11:41 | Electrocardiograph Report ---
[address] [address] Test Date: 2018-07-18 Pat Name: [facility] Department: [id number] Room: [facility] Gender: F Building Coordinator: [id number] : 1935 Requested By: Zaid Joshua Order Number: [id number] Reading MD: Keyur Berkowitz Measurements Intervals [place] Rate: 82 P: 97 IN: 175 QRS: 13 QRSD: 86 T: 47 QT: 357 QTc: 396 Interpretive Statements SINUS RHYTHM Electronically Signed On 07-22-2018 11:40:41 EDT by Keyur Berkowitz
== END 2018-07-19 15:15 | disposition home or self-care (01) ==
LOC: EMEROOPIK 23:10 → INPPIK 23:10
PROVIDERS: ADMIT Internal Medicine; ATTEND Internal Medicine

== ENCOUNTER 2019-07-18 20:02 | Observation (INO) ==
[2019-07-18] MEDS ORDERED: Ipratropium/Albuterol Neb 3 ML IH ONE (20:22)
[2019-07-18] MEDS ORDERED: Famotidine 20 MG/2 ML VIAL IVP ONE (20:22)
[2019-07-18] MEDS ORDERED: methylPREDNISolone 125 MG/2 ML VIAL IVP ONE (20:22)
--- NOTE | 2019-07-18 20:44 | Emergency Department Note ---
Disposition Clinical Impression: Adverse reaction to drug, Bronchitis Disposition: Admitted As Inpatient Condition: Fair Time of Disposition: 23:12 Allergic Reaction HPI - General Chief complaint: ED Allergic Reaction Stated complaint: Possible allergic reaction Time Seen by Provider: 07/18/19 20:08 Source: patient Mode of arrival: ambulatory Limitations: age Nursing Notes Reviewed: Yes Vital Signs Reviewed: Yes - History of Present Illness HPI Narrative: Patient is currently being treated for bronchitis finished steroids of Solu- Medrol and now is on prednisone. Patient took some Zithromax today as instructed and then shortly afterwards had what she described as the inability to swallow. [place] like she was choking she said that she even had a rash on her face but she denied that it was like hives. She has taken Zithromax in the past without any problems. She denies any lightheadedness dizziness any nausea vomiting or diaphoresis with the episode she denies any blurred vision double vision burning urgency stinging rash or lesions she has a bone marrow disorder M RDS anemia and she states that with the bronchitis as well as placed on antibiotics. She denies any additional complaints at this time. Pt Subjective Complaint: allergic reaction Onset (ago): Just [employer] Exposure: medication Known history of allergy to: Zithromax just started for bronchitis and reaction started has taken prior without issue Symptoms: Reports: difficulty breathing, hoarseness Severity: moderate, severe Treatment prior to arrival: benadryl, steroids Previous Allergic Reaction History: none - Related Data Home Medications Medication Instructions Recorded Confirmed Epoetin Cash [Procrit] 40,000 units IM QWEEK 10/24/15 07/18/19 Levothyroxine [Synthroid] 75 mcg PO DAILY 10/24/15 07/19/18 Esomeprazole Magnesium [Nexium] 40 mg PO DAILY 12/23/16 07/19/18 Cholecalciferol (Vitamin D3) 3,000 unit PO DAILY 07/19/18 07/18/19 [Vitamin D3] Deferasirox [Jadenu] 360 mg PO DAILY 07/19/18 07/18/19 Azithromycin [Azithromycin 6-Tab 250 mg PO PER PKG DI 07/18/19 07/18/19 Pack] Cetirizine HCl [Allergy Relief] 10 mg PO DAILY 07/18/19 07/18/19 PredniSONE [Deltasone] 20 mg PO DAILY 07/18/19 07/18/19 Previous Rx's Medication Instructions Recorded Albuterol Sulfate [Albuterol 2 puff IH Q6H #1 puff 07/18/19 Inhaler] Guaifenesin [Mucinex] 600 mg PO BID #30 tab.er.12h 07/18/19 levoFLOXacin [Levaquin] 500 mg PO DAILY #7 tablet 07/18/19 predniSONE [PredniSONE] 40 mg PO DAILY #10 tablet 07/18/19 Allergies Allergy/AdvReac Type Severity Reaction Status Date / Time cephalexin [From Keflex] AdvReac Nausea Verified 07/18/18 23:12 chlorpheniramine AdvReac Hypertensio Verified 07/18/18 23:12 [From Chlor-Trimeton] n nitrofurantoin AdvReac Hives Verified 07/18/18 23:12 [From Macrobid] All systems ED: reviewed and negative except as stated. Review of Systems: As Per HPI Constitutional: Denies: fever, chills, weakness Eyes: Denies: eye pain, eye discharge ENT ED: Denies: ear pain, throat pain Cardiovascular: Reports: dyspnea on exertion. Denies: chest pain, palpitations Respiratory: Reports: cough, dyspnea, wheezes, sputum production Gastrointestinal: Denies: abdominal pain, nausea Genitourinary: Denies: urgency, dysuria, frequency Musculoskeletal: Denies: back pain, neck pain, joint swelling Integumentary: Denies: rash, abrasion, lesions Neurological: Denies: headache, weakness Psychiatric: Denies: anxiety, depression Endocrine: Denies: fatigue Hematological/Lymphatic: Denies: easy bleeding Allergic/Immunologic: Denies: facial swelling, urticaria, itchy eyes Past Medical History - Past Medical History Attestation: Yes The following information was validated with the patient. Source: patient, old records reviewed, nursing notes reviewed Medical history: Reports: cancer, coronary artery disease, GERD, hypertension, thyroid disease, other Surgical history: Reports: angioplasty/stent, cholecystectomy, hysterectomy, other Psychiatric history: Reports: no psych history [employer] WORK[employer] history: Reports: no [employer] WORK[employer] history - Social History Smoking Status: Never smoker Smokeless Tobacco Status: No Alcohol use: Reports: none Drug use: Reports: none Physical Exam - General Limitations: age General appearance: alert, in no apparent distress - Head Head exam: atraumatic, normocephalic, normal inspection - Eye Eye exam: Present: normal appearance, PERRL, EOMI - ENT ENT exam: normal exam, normal oropharynx, mucous membranes moist, TM's normal bilaterally, normal external ear exam, other (Significant amount of postnasal d rip clear in consistency the posterior pharyngeal region) - Neck Neck exam: Present: normal inspection, full ROM, trachea midline - Chest Chest inspection: Present: normal inspection, symmetric chest wall rise - Respiratory Respiratory exam: Present: normal lung sounds bilaterally, wheezes - Cardiovascular Cardiovascular exam: Present: regular rate, normal rhythm, normal heart sounds - Abdominal Exam Abdominal exam: Present: soft, Non-Tender, normal bowel sounds. Absent: mass, pulsatile mass - Extremities Exam Extremities exam: Present: normal inspection, full ROM, normal capillary refill. Absent: tenderness, pedal edema, joint swelling, calf tenderness - Expanded Lower Extremity Exam Neurovascular/Tendon exam: Present: normal capillary refill, normal fine/light touch - Back Exam Back exam: Present: normal inspection, full ROM. Absent: muscle spasm - Neurological Exam Neurological exam: Present: alert, oriented X3, CN II-XII intact, normal gait - Psychiatric Psychiatric exam: Present: normal affect, normal mood - Skin Skin exam: Present: warm, dry, intact, normal color Course Course Narrative: Patient was seen and evaluated examinations performed patient did receive a aerosol treatment which did seem to help break up her cough and wheezing that she was having she seemed to be resting much more comfortable but was kind of anxious afterwards with the results having been doing aerosol. I went over and spoke on to the patient about going home Vital Signs Temperature 97.7 F 07/18/19 20:04 Pulse Rate 82 07/18/19 20:04 Respiratory Rate 18 07/18/19 20:04 Blood Pressure 148/81 07/18/19 20:04 O2 Sat by Pulse Oximetry 100 07/18/19 20:04 Temperature 97.7 F 07/18/19 20:04 Pulse Rate 84 07/18/19 22:15 Respiratory Rate 17 07/18/19 22:15 Blood Pressure 110/55 07/18/19 22:15 O2 Sat by Pulse Oximetry 100 07/18/19 22:15 Oxygen Delivery Oxygen Delivery Room Air Allergic Reaction - MDM Narrative Medical decision making narrative: COPD bronchitis asthma - Differential Diagnosis Differential Diagnosis: Likely: anaphylaxis, allergic reaction - Medical Records Medical records reviewed: Yes I reviewed the patient's medical records. Critical Care Time Critical Care Time: No
[2019-07-18] MEDS ORDERED: levoFLOXacin 500 MG/100 ML 500 MG/100 ML BAG IVPB ONE (23:00)
[2019-07-19] MEDS ORDERED: Naloxone 0.4 MG/ML INJ IVP PRN (00:09)
[2019-07-19] MEDS ORDERED: Ondansetron ODT 4 MG TAB.RAPDIS SL PRN (00:09)
[2019-07-19] MEDS: MethylPREDNISolone 40 MG/ML VIAL IVP SCH ×2 (03:36→09:04)
[2019-07-19 05:53] LABS: Basophils # 0.1 K/mcL (0.0-0.2); Basophils % 1.1 %; Hematocrit 28.2 % (35.3-44.9); Hemoglobin 9.6 g/dL (11.5-15.4); Immature Granulocytes % 4.8 % (0-4); Lymphocytes # 0.2 K/mcL (0.6-4.6); Mean Corpuscular Hemoglobin 29.9 pg (28.0-33.3); Mean Corpuscular Volume 87.9 fL (83.0-100.0); Mean Platelet Volume 11.5 fL (9.4-12.4); Monocytes # 0.1 K/mcL (0.0-1.3); Monocytes % 0.6 %; Neutrophils # 7.1 K/mcL (1.6-8.9); Platelet Count 288 K/mcL (140-400); Red Blood Count 3.21 M/mcL (3.82-4.97); Segmented Neutrophils % 90.5 %; White Blood Count 7.9 K/mcL (4.3-11.1)
[2019-07-19 06:00] LABS: INR 1.2; Prothrombin Time 13.7 Seconds (9.4-12.1)
[2019-07-19 06:03] LABS: Activated Partial Thrombo Time 32.7 Seconds (26.0-36.0)
[2019-07-19 06:21] LABS: Calcium 8.9 mg/dL (8.6-10.3); Carbon Dioxide 27 mEq/L (23-29); Chloride 102 mEq/L (98-107); Glucose 160 mg/dL (70-105); Potassium 4.5 mEq/L (3.5-5.1); Sodium 136 mEq/L (136-145); eGFR For African Americans > 60 (> 60); eGFR For Non-African Americans 54 (> 60)
[2019-07-19 06:31] LABS: BUN/Creatinine Ratio 28 (6-26); Blood Urea Nitrogen 27 mg/dL (8-23); Osmolality,Calculated 291 (280-300)
[2019-07-19 07:32] VITALS: BP 124/64
[2019-07-19] MEDS: Ipratropium/Albuterol Neb 3 ML IH SCH ×2 (08:58→10:17)
[2019-07-19] MEDS ORDERED: Cholecalciferol (D-3) 1,000 UNIT (25MCG) TABLET PO SCH (09:00)
[2019-07-19] MEDS ORDERED: DEFERASIROX 360 MG PO SCH (09:00)
--- NOTE | 2019-07-19 09:36 | Internal Med History&Physical ---
Date of Encounter: 07/19/19 Time of Encounter: 09:00 Assessment and Plan (1) Bronchitis Current visit: Yes Status: Acute She feels improved and wishes to be discharged home. (2) Chronic anemia Current visit: No Status: Acute As per oncologist. Internal Medicine - H&P: HPI Chief complaint: Cough Admitted From: Emergency Dept Plans for Post Hospital Care: Home History of present illness: Ms. Raza is a 84 year old female who came to emergency room stating she had c oughing onset approximately 2 days previously. There was minimal productivity. She had been seen at an urgent care in [place] and had received IM Solu- Medrol and prescription for Z-Gui and prednisone. Her coughing worsened the morning of July 18. She came to emergency room that evening and it was felt she should be admitted for observation. She states she feels improved now and back to baseline and wishes to be discharged home. Respiratory history is significant for being a lifelong n onsmoker and having no known chronic lung disease. Past Med Surg Social Fam HX - Past Medical History Medical history: cancer, coronary artery disease, GERD, hypertension, thyroid disease, other Additional medical history: MDS ANEMIA Psychiatric history: no psych history - Past Surgical History Surgical History: angioplasty/stent, cholecystectomy, hysterectomy, other Additional surgical history: CARDIAC STENT X1 LAD. REPAIR BLADDER PROLAPSE. Right arm - Social History Smoking Status: Never smoker Smokeless Tobacco Status: No Alcohol use: none Drug use: none - Family History Father Age at : 79 Cause of : CANCER Internal Medicine - H&P: Meds Epoetin Cash [Procrit] 40,000 units IM QWEEK 10/24/15 [History] Levothyroxine [Synthroid] 75 mcg PO DAILY 10/24/15 [History] Esomeprazole Magnesium [Nexium] 40 mg PO DAILY 12/23/16 [History] Cholecalciferol (Vitamin D3) [Vitamin D3] 3,000 unit PO DAILY 07/19/18 [History] Deferasirox [Jadenu] 360 mg PO DAILY 07/19/18 [History] Albuterol Sulfate [Albuterol Inhaler] 2 puff IH Q6H #1 puff 07/18/19 [Rx] Azithromycin [Azithromycin 6-Tab Pack] 250 mg PO PER PKG DI 07/18/19 [History] Cetirizine HCl [Allergy Relief] 10 mg PO DAILY 07/18/19 [History] Guaifenesin [Mucinex] 600 mg PO BID #30 tab.er.12h 07/18/19 [Rx] PredniSONE [Deltasone] 20 mg PO DAILY 07/18/19 [History] levoFLOXacin [Levaquin] 500 mg PO DAILY #7 tablet 07/18/19 [Rx] predniSONE [PredniSONE] 40 mg PO DAILY #10 tablet 07/18/19 [Rx] Allergy/AdvReac Type Severity Reaction Status Date / Time cephalexin [From Keflex] AdvReac Nausea Verified 07/18/18 23:12 chlorpheniramine AdvReac Hypertensio Verified 07/18/18 23:12 [From Chlor-Trimeton] n nitrofurantoin AdvReac Hives Verified 07/18/18 23:12 [From Macrobid] All Systems PM: A 10-system review of systems was performed and is negative for pertinent findings except as documented above in the HPI. Review of systems: Review of systems from her June 2018 [facility] hospitalization were reviewed and revised as below. Gen.: Her weight has decreased from 64.41 kg on 07/04/2017 to 60.781 kg on admission now. Cardiovascular: Chart reports history of hypertension but she denies knowledge of this. She also denies [place] heart failure angina DVT or pulmonary embolus. She claims she had a cardiac stent placed approximately 2008. Respiratory: As per history of present illness. GI: She has had cholecystectomy. She has had elevated liver function tests in the past. She denies disorder of her exocrine pancreas. : She has CKD stage III. She denies disorders of her kidney or bladder otherwise. Neurologic: She denies large distribution strokes or seizures. She was diagnosed with TIA approximately 2012 at [facility]. She has had no recurrence. 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 She has pancytopenia and follows with a [place] airborne electronics analyst/oncologist. She denies other internal malignancies or blood disorders. Psychiatric: She denies anxiety depression or other mental health issues. [place] skeletal: She has DJD but no known gout or osteoporosis. - Constitutional Vitals: Temp Pulse Resp BP Pulse Ox 97.9 F 65 16 124/64 96 07/19/19 07:28 07/19/19 07:28 07/19/19 07:28 07/19/19 07:28 07/19/19 07:28 Exam: Gen.: She is a well-developed well-nourished female resting comfortably in bed who appears in no acute distress. She did not cough during the visit. HEENT: Head is atraumatic and normocephalic. Eyes: EOMI. There is no scleral icterus. Mouth: Mucosa is moist. Neck: Supple and nontender. There is no thyromegaly or adenopathy noted. Heart: Regular without 2/6 systolic murmur heard at the left sternal border and base radiating toward the axilla. S1 and S2 are preserved. Lungs: No wheezes or crackles are heard. Abdomen: Soft and nontender. No masses or guarding are noted. Extremities: There is no cyanosis edema or clubbing noted. Dorsalis pedis and posterior tibial pulses are 1-2 over 2 bilaterally. Neurologic: Mental status: She is talkative and a good historian. Cranial nerves: Smile is symmetric. Forehead wrinkles bilaterally. Tongue protrudes midline. EOMI. Motor: There is no pronator drift. Cerebellar: Finger to nose is intact bilaterally. Skin: Warm and dry Internal Med - H&P Results - Labs CBC & Chem 7: 07/19/19 05:25 07/19/19 05:25 Labs: Short CBC 07/19/19 Range/Units 05:25 WBC 7.9 (4.3-11.1) K/mcL Hgb 9.6 L (11.5-15.4) g/dL Hct 28.2 L (35.3-44.9) % Plt Count 288 (140-400) K/mcL Neutrophils # 7.1 (1.6-8.9) K/mcL BMP 07/19/19 05:25 Sodium 136 Potassium 4.5 Chloride 102 Carbon Dioxide 27 BUN 27 H Creatinine 0.98 Glucose 160 H Calcium 8.9 - Impressions ITS Impressions Chest X-Ray 07/19/19 06:00 IMPRESSION: Stable exam without evidence for acute cardiopulmonary process. D/ / 07/19/2019 08:38:42 Lon Gaitan MD / [place] Interpreting Provider: Lon Gaitan MD
[2019-07-19] MEDS: Loratadine 10 MG TABLET PO SCH ×2 (09:39→09:41)
--- NOTE | 2019-07-19 09:44 | Discharge Summary ---
Date of Encounter: 07/19/19 Time of Encounter: 09:00 - Discharge Diagnosis (1) Bronchitis Priority: Primary Status: Acute (2) Chronic anemia Priority: Secondary Status: Acute Hospital course: Ms. Raza is a 84 year old female who came to emergency room stating she had coughing onset approximately 2 days previously. There was minimal productivity. She had been seen at an urgent care in [place] and had received IM Solu- Medrol and prescription for Z-Gui and prednisone. Her coughing worsened the morning of July 18. She came to emergency room that evening and it was felt she should be admitted for observation. Initial orders were written by the emergency room physician. I saw her on July 19 and performed a history physical and discharge. When I saw her she felt back to her baseline. Her vital signs were stable since admission and she remained afebrile. She did not cough during the history and physical. I felt she was stable for discharge home. I did not feel she needed additional antibiotics. Her PCP can determine the duration of continuing prednisone. She will follow with her PCP within 1 week. She will follow with her oncologist as directed. - Time Spent with Patient Total time spent providing and/or coordinating discharge services: - Discharge Medications Prescriptions: New Guaifenesin [Mucinex] 600 mg PO BID #30 tab.er.12h predniSONE [PredniSONE] 40 mg PO DAILY #10 tablet Albuterol Sulfate [Albuterol Inhaler] 2 puff IH Q6H #1 puff Continued Levothyroxine [Synthroid] 75 mcg PO DAILY Epoetin Cash [Procrit] 40,000 units IM QWEEK Esomeprazole Magnesium [Nexium] 40 mg PO DAILY Deferasirox [Jadenu] 360 mg PO DAILY Cholecalciferol (Vitamin D3) [Vitamin D3] 3,000 unit PO DAILY Cetirizine HCl [Allergy Relief] 10 mg PO DAILY PredniSONE [Deltasone] 20 mg PO DAILY Discontinued Azithromycin [Azithromycin 6-Tab Pack] 250 mg PO PER PKG DI Home Medications: Epoetin Cash [Procrit] 40,000 units IM QWEEK 10/24/15 [History] Levothyroxine [Synthroid] 75 mcg PO DAILY 10/24/15 [History] Esomeprazole Magnesium [Nexium] 40 mg PO DAILY 12/23/16 [History] Cholecalciferol (Vitamin D3) [Vitamin D3] 3,000 unit PO DAILY 07/19/18 [History] Deferasirox [Jadenu] 360 mg PO DAILY 07/19/18 [History] Albuterol Sulfate [Albuterol Inhaler] 2 puff IH Q6H #1 puff 07/18/19 [Rx] Cetirizine HCl [Allergy Relief] 10 mg PO DAILY 07/18/19 [History] Guaifenesin [Mucinex] 600 mg PO BID #30 tab.er.12h 07/18/19 [Rx] PredniSONE [Deltasone] 20 mg PO DAILY 07/18/19 [History] predniSONE [PredniSONE] 40 mg PO DAILY #10 tablet 07/18/19 [Rx] Allergies/Adverse Reactions: Allergy/AdvReac Type Severity Reaction Status Date / Time cephalexin [From Keflex] AdvReac Nausea Verified 07/18/18 23:12 chlorpheniramine AdvReac Hypertensio Verified 07/18/18 23:12 [From Chlor-Trimeton] n nitrofurantoin AdvReac Hives Verified 07/18/18 23:12 [From Macrobid] Date of admission: 07/18/19 23:17 Primary care physician: Nav Mckinney Consults: 07/19/19 00:09 Consult to Nurse Navigator [CONS] Routine Comment: - Constitutional Vitals: Temp Pulse Resp BP Pulse Ox 97.9 F 65 16 124/64 96 07/19/19 07:28 07/19/19 07:28 07/19/19 07:28 07/19/19 07:28 07/19/19 07:28 - Patient Status Disposition: Home, Self-Care Condition: Fair - Discharge Instructions Follow Up With: Nav Mckinney [Primary Care Provider] - 1 week - Diet and Activity Activity: resume usual activities as tolerated Diet: advance to your usual diet
[2019-07-20] MEDS ORDERED: levoFLOXacin 500 MG TABLET PO SCH (23:00)
== END 2019-07-19 11:17 | disposition home or self-care (01) ==
LOC: INPPIK 20:02 → EMEROOPIK 20:02 → INPPIK 23:40
PROVIDERS: ADMIT Internal Medicine; ATTEND Internal Medicine